=== PATIENT | male | born 1990 | race Caucasian/White ===

== ENCOUNTER 2021-01-17 12:24 | Emergency (ER) | payer OTHER ==
[~2021-01-17] VITALS: Ht 187.9 cm; Wt 124.7 kg
[~2021-01-17 12:24] MED LIST: ACYCLOVIR800 MG PO; ATARAX25 MG PO; CLINDAMYCIN HC300 MG PO; CLOTRIMAZOLE1% TP; HYDROCODONE BIT1 T11 PO; KEFLEX500 MG PO; MOTRIN800 MG PO; Motrin,Rufen800 MG PO; NAPROSYN500 MG PO; NKHM; PENICILLIN VK500 MG PO; PREDNISONE20 MG PO; VIBRA-TAB100 MG PO; VICODIN 500 MG-1 TAB PO; VOLTAREN50 M1 PO
[2021-01-17 12:35] VITALS: BP 140/99
[2021-01-17 13:01] LABS: BASO # 0.1 10*3/uL (0.0-0.1); BASO % 0.9 % (0.0-1.0); EOS # 0.1 10*3/uL (0.0-0.4); EOS % 1.9 % (1.0-4.0); HEMATOCRIT 45.5 % (42.0-52.0); LYMPH # 1.9 10*3/uL (1.3-4.4); LYMPH % 27.8 % (27.0-41.0); MEAN CELL VOLUME 89.6 fl (80.0-94.0); MEAN CORPUSCULAR HGB 30.9 pg (27.0-31.0); MEAN CORPUSCULAR HGB CONC 34.5 g/dl (33.0-37.0); MEAN PLATELET VOLUME 8.6 fl (9.6-12.3); MONO # 0.5 10*3/uL (0.1-1.0); NEUT # 4.2 10*3/uL (2.3-7.9); NEUT % 62.3 % (47.0-73.0); PLATELET COUNT AUTOMATED 328 10*3/uL (130-400); RED BLOOD COUNT 5.08 10*6/uL (4.50-5.90); RED CELL DISTRI WIDTH 11.3 % (0-14.5); WHITE BLOOD COUNT 6.7 10*3/uL (4.8-10.8)
[2021-01-17 13:19] LABS: ALBUMIN 4.5 gm/dl (3.1-4.5); ALKALINE PHOSPHATASE 54 U/L (45-117); BUN 12 mg/dl (7-24); CHLORIDE 109 mmol/L (98-107); CREATININE 1.05 mg/dL (0.70-1.30); POTASSIUM 3.7 mmol/L (3.5-5.1); SGOT/AST 29 IU/L (3-35); SGPT/ALT 69 U/L (12-78); SODIUM 140 mmol/L (136-145); TOTAL PROTEIN 7.9 gm/dL (6.4-8.2)
== END 2021-01-17 15:43 | disposition home or self-care (01) ==
LOC: ED 12:24
PROVIDERS: Physician Assistant
DX: R42 Dizziness and giddiness (principal); Z88.8 Allergy status to other drugs, medicaments and biological substances; Z79.899 Other long term (current) drug therapy; Z79.2 Long term (current) use of antibiotics

== ENCOUNTER → 2021-02-16 | Outpatient (CLI) | payer OTHER | END | disposition home or self-care (01) | LOC: RAD 13:40 | PROVIDERS: ATTEND Chiropractor Orthopedic | DX: M51.26 Other intervertebral disc displacement, lumbar region (principal); M25.551 Pain in right hip ==

== ENCOUNTER 2021-10-11 12:37 | Emergency (ER) | payer OTHER ==
[~2021-10-11] VITALS: Wt 131.5 kg
[2021-10-11 12:55] VITALS: BP 127/82
[2021-10-11] MEDS ORDERED: FLONASE ALLERG9.9 ML NAS (14:49)
[2021-10-11] MEDS ORDERED: PENICILLIN VK500 MG PO (14:49)
== END 2021-10-11 14:55 | disposition home or self-care (01) ==
LOC: ED 12:37
DX: H66.92 Otitis media, unspecified, left ear (principal)

== ENCOUNTER 2021-12-26 15:48 | Emergency (ER) | payer OTHER ==
[~2021-12-26 15:48] MED LIST changes: +FLONASE ALLERG9.9 ML NAS
[2021-12-26 16:02] VITALS: BP 124/70
== END 2021-12-26 16:48 | disposition home or self-care (01) ==
LOC: ED 15:48
DX: T21.22XD Burn of second degree of abdominal wall, subsequent encounter (principal); Z48.00 Encounter for change or removal of nonsurgical wound dressing; Z91.048 Other nonmedicinal substance allergy status; Z79.899 Other long term (current) drug therapy; Z79.2 Long term (current) use of antibiotics; X08.8XXD Exposure to other specified smoke, fire and flames, subsequent encounter

== ENCOUNTER 2022-06-05 10:10 | Emergency (ER) | payer OTHER ==
[~2022-06-05] VITALS: Ht 187.9 cm; Wt 127.0 kg
[~2022-06-05 10:10] MED LIST changes: +AMOXICILLIN500 M2 PO
[2022-06-05 11:59] VITALS: BP 137/83
[2022-06-05] MEDS ORDERED: BENZONATATE100 M1 PO (13:50)
[2022-06-05] MEDS ORDERED: CETIRIZINE10 MG PO (13:50)
== END 2022-06-05 13:46 | disposition home or self-care (01) ==
LOC: ED 10:10
DX: J00 Acute nasopharyngitis [common cold] (principal); Z88.8 Allergy status to other drugs, medicaments and biological substances; R05.9 Cough, unspecified; J02.9 Acute pharyngitis, unspecified; R11.0 Nausea

== ENCOUNTER 2022-09-21 19:45 | Emergency (ER) | payer BC ==
[~2022-09-21] VITALS: Ht 187.9 cm; Wt 134.7 kg
[~2022-09-21 19:45] MED LIST changes: +BENZONATATE100 M1 PO; +CETIRIZINE10 MG PO
[2022-09-21 20:00] VITALS: BP 132/84
== END 2022-09-21 20:53 | disposition home or self-care (01) ==
LOC: ED 19:45
DX: S63.601A Unspecified sprain of right thumb, initial encounter (principal); X58.XXXA Exposure to other specified factors, initial encounter; Y93.89 Activity, other specified; Y92.89 Other specified places as the place of occurrence of the external cause; Y99.8 Other external cause status

== ENCOUNTER 2023-01-09 10:29 | Emergency (ER) | payer OTHER ==
[~2023-01-09] VITALS: Ht 187.9 cm; Wt 135.2 kg
[2023-01-09 10:36] VITALS: BP 156/95
[2023-01-09] MEDS ORDERED: CILOXAN 5 ML5 M1 OP (11:16)
[2023-01-09] MEDS ORDERED: CLINDAMYCIN HC300 MG PO (11:16)
== END 2023-01-09 11:39 | disposition home or self-care (01) ==
LOC: ED 10:29
DX: H10.9 Unspecified conjunctivitis (principal); H60.93 Unspecified otitis externa, bilateral; Z88.8 Allergy status to other drugs, medicaments and biological substances; Z87.891 Personal history of nicotine dependence; Z98.890 Other specified postprocedural states

== ENCOUNTER 2023-01-21 19:40 | Emergency (ER) | payer OTHER ==
[~2023-01-21] VITALS: Ht 187.9 cm; Wt 135.2 kg
[~2023-01-21 19:40] MED LIST changes: +CILOXAN 5 ML5 M1 OP
[2023-01-21 21:18] VITALS: BP 137/97
[2023-01-21] MEDS ORDERED: NAPROSYN500 MG PO (23:05)
== END 2023-01-21 23:10 | disposition home or self-care (01) ==
LOC: ED 19:40
DX: S93.401A Sprain of unspecified ligament of right ankle, initial encounter (principal); F17.200 Nicotine dependence, unspecified, uncomplicated; Z79.2 Long term (current) use of antibiotics; Z88.8 Allergy status to other drugs, medicaments and biological substances; X50.0XXA Overexertion from strenuous movement or load, initial encounter; Y93.89 Activity, other specified; Y92.321 Football field as the place of occurrence of the external cause; Y99.8 Other external cause status

== ENCOUNTER → 2023-02-08 | Day surgery (SDC) | payer OTHER ==
[2023-02-07 12:59] VITALS: BP 145/74
[2023-02-07 14:35] LABS: BUN 8 mg/dl (9-23); CHLORIDE 105 mmol/L (98-107)
[~2023-02-08] VITALS: Ht 187.9 cm; Wt 135.2 kg
[~2023-02-08] MED LIST changes: +HYDROCODONE-AC1 EAC1 PO
[2023-02-08 10:30] VITALS: BP 130/87
[2023-02-08 13:21] VITALS: BP 159/106
[2023-02-08 13:36] VITALS: BP 138/83
[2023-02-08 13:51] VITALS: BP 160/87
[2023-02-08 14:06] VITALS: BP 151/91
[2023-02-08 14:21] VITALS: BP 172/98
== END | disposition home or self-care (01) ==
LOC: SDC 02-07 13:15
PROVIDERS: ATTEND Orthopaedic Surgery
DX: S86.011A Strain of right Achilles tendon, initial encounter (principal); F41.9 Anxiety disorder, unspecified; F32.A Depression, unspecified; F17.210 Nicotine dependence, cigarettes, uncomplicated; X58.XXXA Exposure to other specified factors, initial encounter; Y93.61 Activity, american tackle football; Y92.89 Other specified places as the place of occurrence of the external cause; Y99.8 Other external cause status

== ENCOUNTER → 2023-02-28 | Outpatient (CLI) | payer OTHER | END | disposition home or self-care (01) | LOC: RESCLI 12:18 | PROVIDERS: ATTEND Family Medicine | DX: Z23 Encounter for immunization (principal); S86.011A Strain of right Achilles tendon, initial encounter; Z78.9 Other specified health status; Z87.891 Personal history of nicotine dependence ==

== ENCOUNTER 2023-06-14 19:21 | Emergency (ER) | payer OTHER ==
[~2023-06-14] VITALS: Ht 187.9 cm; Wt 108.9 kg
[2023-06-14 20:02] VITALS: BP 133/75
[2023-06-14] MEDS ORDERED: AMOX-CLAV 875-1 EACH PO (21:59)
== END 2023-06-14 22:11 | disposition home or self-care (01) ==
LOC: ED 19:21
DX: H66.92 Otitis media, unspecified, left ear (principal); Z88.8 Allergy status to other drugs, medicaments and biological substances

== ENCOUNTER 2024-01-07 21:18 | Emergency (ER) | payer OTHER ==
[~2024-01-07] VITALS: Ht 172.7 cm; Wt 81.6 kg
[~2024-01-07 21:18] MED LIST changes: +AMOX-CLAV 875-1 EACH PO
[2024-01-07 21:28] VITALS: BP 127/71
[2024-01-07 21:54] LABS: BASO # 0.1 10*3/uL (0.0-0.1); BASO % 0.8 % (0.0-1.0); EOS # 0.2 10*3/uL (0.0-0.4); EOS % 2.3 % (1.0-4.0); HEMATOCRIT 40.2 % (42.0-52.0); LYMPH # 2.7 10*3/uL (1.3-4.4); LYMPH % 29.1 % (27.0-41.0); MEAN CELL VOLUME 92.8 fl (80.0-94.0); MEAN CORPUSCULAR HGB 32.3 pg (27.0-31.0); MEAN CORPUSCULAR HGB CONC 34.8 g/dl (33.0-37.0); MEAN PLATELET VOLUME 9.1 fl (9.6-12.3); MONO # 0.7 10*3/uL (0.1-1.0); MONO % 7.2 % (3.0-9.0); NEUT # 5.5 10*3/uL (2.3-7.9); NEUT % 59.2 % (47.0-73.0); PLATELET COUNT AUTOMATED 313 10*3/uL (130-400); RED BLOOD COUNT 4.33 10*6/uL (4.50-5.90); RED CELL DISTRI WIDTH 11.9 % (0-14.5); WHITE BLOOD COUNT 9.3 10*3/uL (4.8-10.8)
[2024-01-07 22:08] LABS: BUN 13 mg/dl (9-23); CHLORIDE 109 mmol/L (98-107); POTASSIUM 3.7 mmol/L (3.4-5.1)
== END 2024-01-07 22:34 | disposition home or self-care (01) ==
LOC: ED 21:18
PROVIDERS: Nurse Practitioner
DX: R07.9 Chest pain, unspecified (principal); R11.0 Nausea; R42 Dizziness and giddiness; R20.0 Anesthesia of skin; Z88.8 Allergy status to other drugs, medicaments and biological substances; Z79.2 Long term (current) use of antibiotics

== ENCOUNTER 2024-02-12 19:30 | Emergency (ER) | payer BC ==
[~2024-02-12] VITALS: Ht 187.9 cm; Wt 120.7 kg
[2024-02-12 20:20] VITALS: BP 139/82
[2024-02-12] MEDS ORDERED: CARAFATE1 GM PO (20:21)
[2024-02-12 20:47] LABS: BASO % 0.6 % (0.0-1.0); EOS # 0.2 10*3/uL (0.0-0.4); EOS % 2.1 % (1.0-4.0); HEMATOCRIT 40.8 % (42.0-52.0); LYMPH # 1.8 10*3/uL (1.3-4.4); LYMPH % 25.1 % (27.0-41.0); MEAN CELL VOLUME 92.1 fl (80.0-94.0); MEAN CORPUSCULAR HGB 31.2 pg (27.0-31.0); MEAN CORPUSCULAR HGB CONC 33.8 g/dl (33.0-37.0); MEAN PLATELET VOLUME 8.5 fl (9.6-12.3); MONO # 0.5 10*3/uL (0.1-1.0); MONO % 7.3 % (3.0-9.0); NEUT # 4.7 10*3/uL (2.3-7.9); NEUT % 64.8 % (47.0-73.0); PLATELET COUNT AUTOMATED 271 10*3/uL (130-400); RED BLOOD COUNT 4.43 10*6/uL (4.50-5.90); RED CELL DISTRI WIDTH 11.5 % (0-14.5); WHITE BLOOD COUNT 7.3 10*3/uL (4.8-10.8)
[2024-02-12 21:12] LABS: ALKALINE PHOSPHATASE 62 U/L (46-116); BUN 11 mg/dl (9-23); CHLORIDE 106 mmol/L (98-107); POTASSIUM 3.7 mmol/L (3.4-5.1); SGPT/ALT 33 U/L (5-49); TOTAL PROTEIN 7.4 gm/dL (6.0-8.0)
== END 2024-02-13 00:08 | disposition home or self-care (01) ==
LOC: ED 19:30
PROVIDERS: Emergency Medicine
DX: K21.9 Gastro-esophageal reflux disease without esophagitis (principal); Z88.8 Allergy status to other drugs, medicaments and biological substances; Z79.899 Other long term (current) drug therapy

== ENCOUNTER → 2024-02-14 | Outpatient (CLI) | payer BC ==
[~2024-02-14] MED LIST changes: +CARAFATE1 GM PO
== END | disposition home or self-care (01) ==
LOC: RAD 13:34
PROVIDERS: ATTEND Family Medicine
DX: M54.50 Low back pain, unspecified (principal); M54.2 Cervicalgia

== ENCOUNTER 2024-09-03 21:22 | Emergency (ER) | payer BC ==
[~2024-09-03] VITALS: Ht 182.9 cm; Wt 99.8 kg
[2024-09-03 22:26] VITALS: BP 121/74
[2024-09-03] MEDS ORDERED: AMOXICILLIN 500 MG CAP PO ONE (23:00)
[2024-09-03] MEDS ORDERED: AMOXICILLIN500 M3 PO (23:00)
== END 2024-09-03 23:34 | disposition home or self-care (01) ==
LOC: ED 21:22
DX: R59.0 Localized enlarged lymph nodes (principal); H92.01 Otalgia, right ear; Z88.8 Allergy status to other drugs, medicaments and biological substances; Z79.899 Other long term (current) drug therapy

== ENCOUNTER 2024-10-13 05:47 | Emergency (ER) | payer OTHER ==
[~2024-10-13] VITALS: Ht 187.9 cm; Wt 113.4 kg
[~2024-10-13 05:47] MED LIST changes: +AMOXICILLIN500 M3 PO
[2024-10-13 05:57] VITALS: BP 136/68
[2024-10-13] MEDS ORDERED: AMOX-CLAV 875-1 EACH PO (07:08)
== END 2024-10-13 07:16 | disposition home or self-care (01) ==
LOC: ED 05:47
DX: S00.83XA Contusion of other part of head, initial encounter (principal); J32.9 Chronic sinusitis, unspecified; Z79.899 Other long term (current) drug therapy; W50.0XXA Accidental hit or strike by another person, initial encounter; Y93.61 Activity, american tackle football; Y92.89 Other specified places as the place of occurrence of the external cause; Y99.8 Other external cause status

== ENCOUNTER 2025-01-02 23:48 | Emergency (ER) | payer OTHER ==
[~2025-01-02] VITALS: Ht 187.9 cm; Wt 129.3 kg
[2025-01-02 23:55] VITALS: BP 146/83
[2025-01-03 00:51] LABS: BASO % 0.6 % (0.0-1.0); EOS # 0.2 10*3/uL (0.0-0.4); HEMATOCRIT 40.7 % (42.0-52.0); MEAN CELL VOLUME 89.5 fl (80.0-94.0); MEAN CORPUSCULAR HGB CONC 34.6 g/dl (33.0-37.0); MEAN PLATELET VOLUME 8.3 fl (9.6-12.3); MONO # 0.6 10*3/uL (0.1-1.0); NEUT # 3.7 10*3/uL (2.3-7.9); NEUT % 55.7 % (47.0-73.0); PLATELET COUNT AUTOMATED 272 10*3/uL (130-400); RED BLOOD COUNT 4.55 10*6/uL (4.50-5.90); RED CELL DISTRI WIDTH 11.7 % (0-14.5); WHITE BLOOD COUNT 6.6 10*3/uL (4.8-10.8)
[2025-01-03 01:13] LABS: BUN 14 mg/dl (9-23); CHLORIDE 106 mmol/L (98-107); CPK 509 U/L (34-171); POTASSIUM 3.6 mmol/L (3.4-5.1)
== END 2025-01-03 02:55 | disposition left against medical advice (07) ==
LOC: ED 23:48
PROVIDERS: Internal Medicine
DX: T67.9XXA Effect of heat and light, unspecified, initial encounter (principal); R51.9 Headache, unspecified; M79.18 Myalgia, other site; R11.0 Nausea; Z91.048 Other nonmedicinal substance allergy status; X30.XXXA Exposure to excessive natural heat, initial encounter; Y93.89 Activity, other specified; Y92.89 Other specified places as the place of occurrence of the external cause; Y99.8 Other external cause status

== ENCOUNTER 2025-01-15 16:38 | Emergency (ER) | payer OTHER ==
[~2025-01-15] VITALS: Ht 187.9 cm; Wt 127.0 kg
[2025-01-15 17:08] VITALS: BP 140/73
[2025-01-15] MEDS ORDERED: Acetaminophen/Oxycodone 5 MG/325 MG TABLET PO ONE (17:15)
[2025-01-15] MEDS ORDERED: CYCLOBENZAPRINE10 MG PO (17:49)
[2025-01-15] MEDS ORDERED: MELOXICAM15 MG PO (17:49)
== END 2025-01-15 17:53 | disposition home or self-care (01) ==
LOC: ED 16:38
DX: M62.830 Muscle spasm of back (principal); M54.50 Low back pain, unspecified; Z88.8 Allergy status to other drugs, medicaments and biological substances